=== PATIENT | male | born 1995 | race Caucasian/White ===

== ENCOUNTER 2020-09-10 20:28 | Emergency (ER) | payer OTHER ==
[~2020-09-10] VITALS: Ht 182.9 cm; Wt 90.9 kg
[~2020-09-10 20:28] MED LIST: AMITRIPTYLINE H25 M1 PO; CALCIUM 600MG+D1 TAB PO; CELEXA 20MG20 MG/TAB PO; CELEXA10 MG PO; CITRACAL + D 251 TAB PO; CO Q 10 PO; COZAAR100 MG PO; MELATONIN5 M1 PO; THE MEDICINE S200 M2 PO; VITAMIN D31000 IU PO; ZANTAC 150MG T150 MG PO; ZESTRIL 10MG10 MG PO; ZYRTEC 10MG10 MG PO
[2020-09-10 22:15] VITALS: BP 123/68; PULSE 95; TEMP 98.4
== END 2020-09-10 22:19 | disposition home or self-care (01) ==
LOC: COL.ER 20:28
DX: S09.90XA Unspecified injury of head, initial encounter (principal); S00.83XA Contusion of other part of head, initial encounter; G71.01 Duchenne or Becker muscular dystrophy; W05.0XXA Fall from non-moving wheelchair, initial encounter

== ENCOUNTER 2021-07-24 16:15 | Outpatient (RCR) | payer OTHER | END 2021-08-12 | disposition home or self-care (01) | LOC: MKS.ESL.OT | DX: G71.01 Duchenne or Becker muscular dystrophy (principal) ==

== ENCOUNTER 2022-07-10 13:28 | Outpatient (RCR) | payer OTHER | END 2022-07-10 13:33 | LOC: MKS.ESL.OT 13:28 | DX: G71.01 Duchenne or Becker muscular dystrophy (principal) ==